=== PATIENT | male | born 1970 | race African-American/Black ===

== ENCOUNTER 2016-11-25 09:57 | Emergency (ER) | payer SELFPAY ==
[~2016-11-25 09:57] MED LIST: GABA300C3 PO; JANU100T PO; LISI-360 PO
[2016-11-25 09:59] VITALS: BP 156/80; PULSE 99; RESP 20; TEMP 97.5; O2SAT 97
--- NOTE | 2016-11-25 10:40 | PD ---
HPI Chief Complaint: Oral / Dental Pain or Problem Time Seen by Provider: 10:40 Travel History International Travel<30 days: No Contact w/Intl Traveler<30days: No Traveled to known affect area: No History of Present Illness HPI 46-year-old Afro-[place] male presents the emergency department with pain in the left lower jaw with a correct #17 tooth with localized swelling and tenderness. Patient states it's been chronic for some time. Patient also has a lesion on his left anterior lateral chest which she's had for several weeks with a small amount of drainage. Patient feels it is probably from an insect bite. He has no history of MRSA in the past. He has no fevers, chills, or other symptoms. He has no difficulty swallowing. He is allergic to penicillin. PFSH Past Medical History Diabetes: Yes Diminished Hearing: No Genitourinary: Yes (kidney damage) Musculoskeletal: Yes (neck) Social History Alcohol Use: Yes (occ) Tobacco Use: Yes (1/2 ppd) Substance Use: No Allergies-Medications (Allergen,Severity, Reaction): Coded Allergies: Penicillin (Verified Allergy, Intermediate, Anaphylaxis, 07/13/15) Reported Meds & Prescriptions Reported Meds & Active Scripts Active Reported [insulin pen] Review of Systems Except as stated in HPI: all other systems reviewed are Neg General / Constitutional: No: Fever Eyes: No: Visual changes HENT: Positive: Dental Difficulties, No: Headaches Cardiovascular: No: Chest Pain or Discomfort Respiratory: No: Shortness of Breath Gastrointestinal: No: Abdominal Pain Genitourinary: No: Dysuria Musculoskeletal: No: Pain Skin: Positive Lesions, No Rash Neurologic: No: Weakness Psychiatric: No: Depression Endocrine: No: Polydipsia Hematologic/Lymphatic: No: Easy Bruising Physical Exam Narrative GENERAL: Patient appears no acute distress. SKIN: Warm and dry. Normal color. Normal turgor. Patient has a raised crusted 1 cm diameter tender lesion to the left anterior lateral chest just below the nipple line consistent with either an ingrown hair, insect bite, with localized cellulitis. Ears no deep abscess or induration. HEAD: Atraumatic. Normocephalic. EYES: Pupils equal and round. No scleral icterus. No injection or drainage. ENT: No nasal bleeding or discharge. Mucous membranes pink and moist. Patient has a cracked #17 tooth on the left lower jaw, tender is with palpation and welling. No significant dental abscesses noted. There is no sign of Keith's angina. Pharynx is normal. Airway is patent. NECK: Trachea midline. No JVD. Supple nontender without significant lymphadenopathy. CARDIOVASCULAR: Regular rate and rhythm. RESPIRATORY: No accessory muscle use. Clear to auscultation. Breath sounds equal bilaterally. MUSCULOSKELETAL: Extremities without clubbing, cyanosis, or edema. No obvious deformities. NEUROLOGICAL: Awake and alert. No obvious cranial nerve deficits. Motor grossly within normal limits. Five out of 5 muscle strength in the arms and legs. Normal speech. PSYCHIATRIC: Appropriate mood and affect; insight and judgment normal. Data Data Last Documented VS Vital Signs Date Time Temp Pulse Resp B/P Pulse Ox O2 Delivery O2 Flow Rate FiO2 11/25/16 09:59 97.5 99 20 156/80 97 Room Air MDM Medical Decision Making Medical Screen Exam Complete: Yes Emergency Medical Condition: Yes Differential Diagnosis Insect bite. Cellulitis. Dental abscess. Dental pain. Narrative Course Patient is medically stable at time of exam. Patient is treated with clindamycin 150 mg he states that milligrams 4 times a day 7 days. Patient is given ibuprofen 800 mg 3 times a day 10 days. #30. Bactroban topical ointment for the skin lesion as directed. Patient is given Magic mouthwash to be used for dental pain as directed. Patient is to follow with dental care as soon as possible. Patient can return to emergency department if symptoms worsen. Diagnosis Primary Impression: Dental abscess Additional Impression: Cellulitis Qualified Code: L03.313 - Cellulitis of chest wall Patient Instructions: General Instructions Additional Instructions: Patient is treated with clindamycin 150 mg he states that milligrams 4 times a day 7 days. Patient is given ibuprofen 800 mg 3 times a day 10 days. #30. Bactroban topical ointment for the skin lesion as directed. Patient is given Magic mouthwash to be used for dental pain as directed. Patient is to follow with dental care as soon as possible. Patient can return to emergency department if symptoms worsen. Scripts Xlstgyqq-Qnxctxysdkifcis-Wesidswke Liq (Magic Mouthwash Adult Liq)120 Ml Susp5 Ml SWISH-SWAL ACHS #120 ML Each 5 mL contains: Nystatin 200,000 units, Diphenhydramine 4.25 mg, Viscous Lidocaine 10 mg, Laurent syrup 0.8 mL Prov:Omar Armijo MD 11/25/16 Mupirocin Topical (Bactroban Topical)2 % Cream1 Applic TOPICAL BID #1 TUBE Prov:Omar Armijo MD 11/25/16 Ibuprofen 800 Mg [id number] Mg PO Q8H PRN (Pain/Inflammation) #30 TAB Prov:Omar Armijo MD 11/25/16 Clindamycin 150 Mg [id number] Mg PO Q6H 7 Days Prov:Omar Armijo MD 11/25/16 Disposition: 01 DISCHARGE HOME Condition: Stable Aquilino Wellington Nov 25, 2016 10:40
[2016-11-25] MEDS ORDERED: insulin pen (10:44)
[2016-11-25] MEDS ORDERED: MAGICADU2 SWISH-SWAL (11:13)
[2016-11-25] MEDS ORDERED: MUPI2%T TOPICAL (11:13)
[2016-11-25] MEDS ORDERED: CLIN1CAP5 PO (11:13)
[2016-11-25] MEDS ORDERED: IBUP800T23 PO (11:13)
== END 2016-11-25 11:37 | disposition home or self-care (01) ==
LOC: NEPB 09:57
DX: K04.7 Periapical abscess without sinus (principal); L03.313 Cellulitis of chest wall; E11.9 Type 2 diabetes mellitus without complications; F17.210 Nicotine dependence, cigarettes, uncomplicated
CPT/HCPCS: 99283

== ENCOUNTER 2017-12-29 02:12 | Emergency (ER) | payer SELFPAY ==
[~2017-12-29] VITALS: Ht 172.7 cm; Wt 60.0 kg
[~2017-12-29 02:12] MED LIST changes: +CLIN150C14 PO; -GABA300C3 PO; +IBUP1TAB7 PO; -JANU100T PO; -LISI-360 PO; +MAGICADU2 SWISH-SWAL; +MUPI2%T TOPICAL; +insulin pen
[2017-12-29] MEDS ORDERED: SODIUM CHLOR 0.9% 1000 ML INJ 1,000 ML IV SCH (02:14)
[2017-12-29 02:15] VITALS: RESP 16; O2SAT 100
[2017-12-29] MEDS ORDERED: SODIUM CHLORIDE 0.9% FLUSH 10 ML FLUSH IV FLUSH PRN (02:15)
[2017-12-29 02:31] VITALS: BP 159/84; PULSE 108; RESP 16; TEMP 98.9; O2SAT 100
[2017-12-29 02:48] LABS: AUTOMATED NEUTROPHIL # 7.3 TH/MM3 (1.8-7.7); BASOPHIL % 0.6 % (0.0-2.0); EOSINOPHIL # 0.2 TH/MM3 (0-0.4); EOSINOPHIL % 2.6 % (0.0-4.0); HEMATOCRIT 45.8 % (39.0-51.0); HEMOGLOBIN 15.6 GM/DL (13.0-17.0); LYMPH % 3.2 % (9.0-44.0); LYMPHOCYTE # 0.3 TH/MM3 (1.0-4.8); MEAN CELL VOLUME 86.2 FL (80.0-100.0); MEAN CORPUSCULAR HEMOGLOBIN 29.4 PG (27.0-34.0); MEAN CORPUSCULAR HGB CONC 34.1 % (32.0-36.0); MEAN PLATELET VOLUME 8.1 FL (7.0-11.0); MONO % 2.3 % (0.0-8.0); MONOCYTE # 0.2 TH/MM3 (0-0.9); NEUT % 91.3 % (16.0-70.0); PLATELET COUNT 203 TH/MM3 (150-450); RED BLOOD COUNT 5.31 MIL/MM3 (4.50-5.90); RED CELL DISTRIBUTION WIDTH 13.4 % (11.6-17.2)
[2017-12-29 03:08] LABS: BICARBONATE 24.7 MEQ/L (21.0-32.0); CALCIUM 8.3 MG/DL (8.5-10.1); CREATININE 1.24 MG/DL (0.60-1.30)
--- NOTE | 2017-12-29 03:17 | PD ---
HPI Chief Complaint: Diabetic Time Seen by Provider: 02:14 Travel History International Travel<30 days: No Contact w/Intl Traveler<30days: No Traveled to known affect area: No History of Present Illness HPI Patient 47-year-old male presents emergency department for evaluation of generalized weakness, hyperglycemia, out of his insulin, dental pain. Patient also states that he has arthritis when his sugar gets out of control. Denies any chest pain shortness of breath, endorse some mild abdominal achiness. Patient states his been out of his insulin for some time, has no primary care physician which to follow-up with. States his been insulin dependent diabetic for some time after he filled pills. States symptoms are severe, generalized, context as above, associated signs and symptoms as above PFSH Past Medical History Diabetes: Yes Patient Takes Glucophage: No Diminished Hearing: No Genitourinary: Yes (kidney damage) Musculoskeletal: Yes (neck) Immunizations Current: Yes Social History Alcohol Use: Yes (occ) Tobacco Use: Yes (1/2 ppd) Substance Use: No Allergies-Medications (Allergen,Severity, Reaction): Coded Allergies: penicillin G (Unverified Allergy, Intermediate, Anaphylaxis, 05/10/17) Reported Meds & Prescriptions Reported Meds & Active Scripts Active Magic Mouthwash Adult Liq (Multi-Ingredient Mouthwash/Gargle) 120 Ml Susp 5 Ml SWISH-SWAL ACHS Each 5 mL contains: Nystatin 200,000 units, Diphenhydramine 4.25 mg, Viscous Lidocaine 10 mg, Laurent syrup 0.8 mL Bactroban Topical (Mupirocin) 2 % Cream 1 Applic TOPICAL BID Ibuprofen 800 Mg Tab 800 Mg PO Q8H PRN Clindamycin (Clindamycin HCl) 150 Mg Cap 300 Mg PO Q6H 7 Days Reported [insulin pen] Review of Systems Except as stated in HPI: all other systems reviewed are Neg Physical Exam Narrative GENERAL: Well-developed, unkempt in no obvious distress. SKIN: Focused skin assessment warm/dry. HEAD: Atraumatic. Normocephalic. EYES: Pupils equal and round. No scleral icterus. No injection or drainage. ENT: No nasal bleeding or discharge. Mucous membranes pink and moist. Patient isolates of dental pain to the left lower molars, I do not see any drainable abscess, evidence of multiple carry repairs in the past but I do not see any active caries per NECK: Trachea midline. No JVD. CARDIOVASCULAR: Regular rhythm with mild tachycardia. No murmur appreciated. RESPIRATORY: No accessory muscle use. Clear to auscultation. Breath sounds equal bilaterally. GASTROINTESTINAL: Abdomen soft, non-tender, nondistended. Hepatic and splenic margins not palpable. MUSCULOSKELETAL: No obvious deformities. No clubbing. No cyanosis. No edema. NEUROLOGICAL: Awake and alert. No obvious cranial nerve deficits. Motor grossly within normal limits. Normal speech. PSYCHIATRIC: Appropriate mood and affect; insight and judgment normal. Data Data Last Documented VS Vital Signs Date Time Temp Pulse Resp B/P (MAP) Pulse Ox O2 Delivery O2 Flow Rate FiO2 12/29/17 02:31 98.9 108 16 159/84 (109) 100 12/29/17 02:15 Room Air Orders Orders Basic Metabolic Panel (Bmp) (12/29/17 02:14) Complete Blood Count With Diff (12/29/17 02:14) Iv Access Insert/Monitor (12/29/17 02:14) Ecg Monitoring (12/29/17 02:14) Oximetry (12/29/17 02:14) Sodium Chlor 0.9% 1000 Ml Inj (Ns 1000 M (12/29/17 02:14) Sodium Chloride 0.9% Flush (Ns Flush) (12/29/17 02:15) Sodium Chlor 0.9% 1000 Ml Inj (Ns 1000 M (12/29/17 03:30) Ketorolac Inj (Toradol Inj) (12/29/17 03:30) Ondansetron Inj (Zofran Inj) (12/29/17 03:30) Insulin Human Regular Inj (Novolin R Inj (12/29/17 03:30) Ed Discharge Order (12/29/17 05:50) Labs Laboratory Tests Test 12/29/17 02:20 White Blood Count 8.0 TH/MM3 Red Blood Count 5.31 MIL/MM3 Hemoglobin 15.6 GM/DL Hematocrit 45.8 % Mean Corpuscular Volume 86.2 FL Mean Corpuscular Hemoglobin 29.4 PG Mean Corpuscular Hemoglobin Concent 34.1 % Red Cell Distribution Width 13.4 % Platelet Count 203 TH/MM3 Mean Platelet Volume 8.1 FL Neutrophils (%) (Auto) 91.3 % Lymphocytes (%) (Auto) 3.2 % Monocytes (%) (Auto) 2.3 % Eosinophils (%) (Auto) 2.6 % Basophils (%) (Auto) 0.6 % Neutrophils # (Auto) 7.3 TH/MM3 Lymphocytes # (Auto) 0.3 TH/MM3 Monocytes # (Auto) 0.2 TH/MM3 Eosinophils # (Auto) 0.2 TH/MM3 Basophils # (Auto) 0.0 TH/MM3 CBC Comment DIFF FINAL Differential Comment Blood Urea Nitrogen 16 MG/DL Creatinine 1.24 MG/DL Random Glucose 341 MG/DL Calcium Level 8.3 MG/DL Sodium Level 132 MEQ/L Potassium Level 4.6 MEQ/L Chloride Level 99 MEQ/L Carbon Dioxide Level 24.7 MEQ/L Anion Gap 8 MEQ/L Estimat Glomerular Filtration Rate 76 ML/MIN [facility] Medical Decision Making Medical Screen Exam Complete: Yes Emergency Medical Condition: Yes Differential Diagnosis DKA, hyperglycemia, dental abscess, insulin withdrawal, poor social circumstance. Narrative Course Patient room to the emergency department, was given normal saline, blood glucose initially elevated beyond 300, given insulin and repeat blood glucose is now less than 300, vital signs normalizing, basic labs are otherwise reassuring. No evidence of DKA. Will be placed on empiric antibiotics discussed need follow-up with the [facility] a dentist and discuss return to ED criteria. Patient initially would be placed on clindamycin but he states he cannot afford this and asked for something cheaper, penicillin allergic which limits his options significantly, therefore placed on Magic mouthwash. He is stable for discharge. Diagnosis Primary Impression: Hyperglycemia Additional Impressions: Pain, dental Arthralgia Med/Other Pt SpecificInfo: Prescription(s) given Scripts Wluuapws-Gczdfrmflbqzerh-Vqfnyexad Liq (Magic Mouthwash Adult Liq) 120 Ml Susp 5 ML SWISH-SWAL ACHS for Mouth sores, #120 ML Each 5 mL contains: Nystatin 200,000 units, Diphenhydramine 4.25 mg, Viscous Lidocaine 10 mg, Laurent syrup 0.8 mL Prov: Hawk Clark MD 12/29/17 Disposition: DISCHARGE HOME Condition: Stable Hawk Clark MD Dec 29, 2017 03:17
[2017-12-29] MEDS ORDERED: KETOROLAC TROMETHAMINE 30 MG/ML (IVP) VIAL IV PUSH ONE (03:30)
[2017-12-29] MEDS ORDERED: SODIUM CHLOR 0.9% 1000 ML INJ 1,000 ML IV ONE (03:30)
[2017-12-29] MEDS ORDERED: ONDANSETRON HCL 4 MG/2 ML VIAL IV PUSH ONE (03:30)
[2017-12-29] MEDS ORDERED: INSULIN HUMAN REGULAR 1,000 UNITS/10 ML VIAL IV PUSH ONE (03:30)
[2017-12-29] MEDS ORDERED: CLIN150C14 PO (05:49)
[2017-12-29] MEDS ORDERED: MAGICADU2 SWISH-SWAL (05:58)
== END 2017-12-29 06:05 | disposition home or self-care (01) ==
LOC: NEPE 02:12
DX: E11.65 Type 2 diabetes mellitus with hyperglycemia (principal); K08.89 Other specified disorders of teeth and supporting structures; M19.90 Unspecified osteoarthritis, unspecified site; F17.200 Nicotine dependence, unspecified, uncomplicated
CPT/HCPCS: 80048; 85025; 96361; 96374; 96375; 99284; J1815; J1885; J2405; J7030